=== PATIENT | female | born 1935 | race Caucasian/White ===

== ENCOUNTER 2025-02-27 20:17 | Emergency (ER) | payer OTHER, SELFPAY ==
[2025-02-27 20:20] VITALS: BP 173/89
[2025-02-27 22:33] VITALS: BP 182/93
[2025-02-27 22:40] VITALS: BP 182/93
[2025-02-27 23:00] VITALS: BP 163/60
--- NOTE | 2025-02-28 00:04 | ED.GENMED ---
History of Present Illness
General
Chief Complaint: Ear Problem
Source: patient
Exam Limitations: none
Time Seen by Provider: 02/27/25 23:25
Nursing documentation reviewed up to this point in time: agreed with
History of Present Illness
History of Present Illness:
see MDM
Course
Orders/Labs/Results
Orders:
Orders
02/28/25 00:07
Ciprofloxacin HCl [Cipro] 4 dropperett OTIC NOW STA
Vital Signs
Initial and Last Documented VS:
Initial Vital Signs
Temp Pulse Resp BP Pulse Ox
36.7 C 95 20 173/89 93
02/27/25 20:20 02/27/25 20:20 02/27/25 20:20 02/27/25 20:20 02/27/25 20:20
Last Documented Vital Signs
Temp Pulse Resp BP Pulse Ox
36.7 C 80 22 124/67 100
02/27/25 20:20 02/27/25 23:45 02/27/25 23:45 02/28/25 00:29 02/28/25 00:04
MDM/Problems Addressed
MDM/Problems Addressed:
Note:
CHIEF COMPLAINT(S)
Bleeding from the right ear.
HISTORY OF PRESENT ILLNESS
The patient is an 89-year-old female who presented with bleeding from the right ear, noticed after taking a shower yesterday morning. Her daughter, a nurse, identified the bleeding. The patient reported experiencing blood clots from the ear canal
and described the ear as itchy. She experienced no associated pain or significant hearing loss. Examination by her daughter revealed a yellowish fluid, but no definitive earwax blockage was noted. Throughout the day, she noticed bleeding but denied
congested symptoms or inserting any foreign object into the ear. 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 The daughter recommended an urgent evaluation at urgent care, which resulted in a referral
to the emergency department. The patient reported no known trauma or insect bite but mentioned occasional outdoor exposure. On examination, active bleeding was not observed, but fresh blood and clots were present in the ear canal, possibly from a
blood vessel. The tympanic membrane remained intact.
PAST MEDICAL AND SURIGICAL HISTORY
The patient has a chronic cardiac history but denies other chronic conditions such as chronic obstructive pulmonary disease (COPD) or asthma.
SOCIAL DETERMINANTS AFFECTING HEALTH
The patient is the primary caregiver for her bedridden spouse, representing a significant personal caregiving responsibility.
ALLERGIES
The patient reports no known allergies to antibiotics like Ciprofloxacin or Ofloxacin.
REVIEW OF SYSTEMS
- Ear, Nose, Throat: Bleeding from the right ear, occasional itchiness, no significant hearing loss, no recent upper respiratory tract infection symptoms.
- General: No associated symptoms reported.
PHYSICAL EXAM
- Ear, Nose, Throat: Presence of n the right ear canal. The tympanic membrane appears intact. The ear canal shows slight swelling, but no foreign body is visible.
- Nursing notes reviewed and vital signs reviewed.
PLAN
1. Initiate treatment with topical Ofloxacin drops for the presumed infection in the ear canal.
2. Avoid ear canal irrigation to prevent provoking further bleeding.
3. Consideration of insertion of a small tampon-like ear wick to provide pressure and facilitate medication delivery, minimizing the risk of further bleeding.
4. Referral to an Ear, Nose, and Throat specialist for further assessment.
5. Provide contact information for an Ear, Nose, and Throat specialist group for prompt follow-up.
DIFFERENTIAL DIAGNOSIS
The Differential Diagnosis includes, in no particular order and is not limited to:
1. Ear canal laceration
2. Otitis externa
3. Foreign body in the ear canal
4. Ruptured blood vessel in the ear canal
5. Malignant otitis externa
6. Cerumen impaction with secondary infection
7. Furuncle of the ear canal
8. Trauma-induced ear canal injury
9. Spontaneous tympanic membrane rupture
10. Allergic dermatitis of the ear canal
*Pulse Oximetry
SaO2: 100
Oxygen Mode of Delivery: Room air
ED Attending Note
-
Portions of this chart may have been created with voice recognition software.� Occasional wrong word or��sound alike� substitutions may have occurred due to the inherent limitations of voice recognition software.
Discharge Plan
Departure
Patient Disposition: Home (Routine Discharge)
Date of Disposition: 02/28/25
Time of Disposition: 00:10
Patient with high blood pressure during this ER visit?: Yes
Condition: Fair
Covid-19: Not Applicable
Discharge Problem:
Hemorrhage of ear canal, Acute Otitis Externa
Instructions: Outer Ear Infection (DC)
Prescriptions:
New
ciprofloxacin-dexamethasone 0.3-0.1 % drops,suspension
4 drp otic (ear) BID 7 Days Qty: 7.5 0RF
Referrals:
Fernando Gupta MD [Active, ENT] - Follow up in 1 week
Cristofer Taylor MD [Family Provider, Family Practice]
Activity Restrictions/Additional Instructions:
Apply the Ciprodex drops as instructed twice a day for 7 days. You should see the ear nose and throat doctor, call tomorrow and tell them that you are in the emergency department. If you continue to have bleeding from your ear you can try applying
pressure with a cottonball. Please do not stick anything else deeper into your ear. Return for
Severe pain, hearing loss, fever or any concerns
Interventions
Interventions:
*Risk Screen - Suicide Last Done: 02/28/25 00:33
*General Assessment Last Done: 02/27/25 20:20
*Neglect/Abuse Screening Last Done: 02/28/25 00:33
*ED- Fall Risk Assessment Last Done: 02/28/25 00:33
*ED COVID-19 Vaccine History Last Done: 02/28/25 00:33
*Nursing Disposition Last Done: 02/28/25 00:33
Discharge Date and Time
Discharge Date/Time: 02/28/25 00:52
Print Language: [id number]
[2025-02-28] MEDS: CIPRO 4 DROPPERETT OTIC (00:27)
[2025-02-28 00:29] VITALS: BP 124/67
== END 2025-02-28 00:52 | disposition home or self-care (01) ==
LOC: EMR 20:17
PROVIDERS: EMERGENCY PHYSICIAN Emergency Medicine; FAMILY PHYSICIAN Family Medicine
DX: H92.21 Otorrhagia, right ear (principal); H60.501 Unspecified acute noninfective otitis externa, right ear; R03.0 Elevated blood-pressure reading, without diagnosis of hypertension
CPT/HCPCS: 99282